=== PATIENT | male | born 1955 | race Caucasian/White ===

== ENCOUNTER 2019-02-10 08:33 | Day surgery (SDC) | payer BC ==
[~2019-02-10] VITALS: Ht 177.8 cm; Wt 70.8 kg
[2019-02-10] VITALS (9 sets, daily range): BP systolic 82–113; BP diastolic 55–73
[2019-02-10] MEDS ORDERED: normal saline 1000ml 1,000 ML IV PRN (08:55)
[2019-02-10 09:33] LABS: BASOPHILS # (AUTO) 0.1 X10'3 (0-0.2); BASOPHILS % (AUTO) 0.8 % (0-1); EOSINOPHILS # (AUTO) 0.1 X10'3 (0-0.9); EOSINOPHILS % (AUTO) 1.4 % (0-6); HEMATOCRIT 46.4 % (42.0-52.0); HEMOGLOBIN 15.6 g/dl (14.0-17.9); LYMPHOCYTES # (AUTO) 1.4 X10'3 (1.1-4.8); LYMPHOCYTES % (AUTO) 18.7 % (21-51); MEAN CORPUSCULAR HEMOGLOBIN 33.8 PG (27.0-31.0); MEAN CORPUSCULAR HGB CONC 33.7 g/dL (33.0-36.5); MEAN CORPUSCULAR VOLUME 100.2 FL (78-98); MEAN PLATELET VOLUME 7.9 FL (7.4-10.4); MONOCYTES # (AUTO) 0.9 X10'3 (0-0.9); MONOCYTES % (AUTO) 12.4 % (2-12); NEUTROPHILS # (AUTO) 4.9 X10'3 (1.8-7.7); NEUTROPHILS % (AUTO) 66.7 % (42-75); PLATELET COUNT 98 X10'3 (140-440); RED BLOOD COUNT 4.63 X10'6 (4.70-6.10); RED CELL DISTRIBUTION WIDTH 14.7 % (11.5-14.5); WHITE BLOOD COUNT 7.4 X10'3 (4.5-11.0)
[2019-02-10 09:40] LABS: ALBUMIN 2.9 G/DL (3.4-5.0); ANION GAP 7 (8-16); BLOOD UREA NITROGEN 19 MG/DL (7-18); BUN/CREATININE RATIO 21.3 (5.4-32.0); CALCIUM 9.4 MG/DL (8.5-10.1); CHLORIDE 93 MMOL/L (99-107); CREATININE 0.89 MG/DL (0.60-1.10); GLUCOSE 106 MG/DL (70-104); POTASSIUM 4.6 MMOL/L (3.5-5.1); SODIUM 123 MMOL/L (135-145); TOTAL CARBON DIOXIDE 22.8 MMOL/L (24-32); eGFR 87 ML/MIN
[2019-02-10] MEDS ORDERED: RIFA550T PO (09:54)
[2019-02-10] MEDS ORDERED: FURO-150 PO (09:54)
[2019-02-10] MEDS ORDERED: SPIR50TA PO (09:54)
[2019-02-10] MEDS ORDERED: ATOR40TA71 PO (09:54)
[2019-02-10] MEDS ORDERED: LORA10TA61 PO (09:54)
[2019-02-10] MEDS ORDERED: ZINC50TA60 PO (09:54)
[2019-02-10] MEDS ORDERED: LIDOcaine 1% (10mg/ml) 2ml vial SQ ONE (09:55)
[2019-02-10] MEDS ORDERED: fentaNYL/PF 50MCG/1 ML 2ML syringe IV PRN (09:55)
[2019-02-10] MEDS ORDERED: midazolam 2 mg/2 ml injection IV PRN (09:55)
[2019-02-10] MEDS ORDERED: LIDOcaine 1%/PF 5ML 10 MG/ML VIAL ONE (10:20)
[2019-02-10] MEDS ORDERED: fentaNYL/PF 50MCG/1 ML 2ML syringe ONE (10:21)
[2019-02-10] MEDS ORDERED: midazolam 2 mg/2 ml injection ONE (10:21)
[2019-02-10] MEDS ORDERED: iohexol 300mg/ml 100ml inj. ONE (10:21)
[2019-02-10] MEDS ORDERED: heparin 1,000 UNITS/NS 500ml 500 ML ONE (10:21)
== END 2019-02-10 14:40 | disposition home or self-care (01) ==
LOC: SSTAY O 08:33
PROVIDERS: ATTEND Radiology Diagnostic Radiology
DX: K74.60 Unspecified cirrhosis of liver (principal); Z79.899 Other long term (current) drug therapy; Z88.0 Allergy status to penicillin
CPT/HCPCS: 36415; 37200; 75970; 76937; 80048; 85025; 85610; 99152; 99153; C1769; C1894; C2625; J1644; J2250; J3010; J7030; Q9967

== ENCOUNTER 2019-03-23 05:57 | Day surgery (SDC) | payer BC ==
[2019-03-23] VITALS (10 sets, daily range): BP systolic 120–147; BP diastolic 73–105
[~2019-03-23] VITALS: Ht 175.3 cm; Wt 81.4 kg
[~2019-03-23 05:57] MED LIST: ATOR40TA71 PO; FURO-150 PO; LORA10TA61 PO; RIFA550T PO; SPIR50TA PO; ZINC50TA60 PO
[2019-03-23] MEDS ORDERED: normal saline 1000ml 1,000 ML IV PRN (06:30)
[2019-03-23] MEDS ORDERED: prednisone PEG (06:37)
[2019-03-23] MEDS ORDERED: FURO40TA4 PO (06:37)
[2019-03-23] MEDS ORDERED: DOCU-148 PO (06:37)
[2019-03-23] MEDS ORDERED: OMEP20CA11 PO (06:37)
[2019-03-23] MEDS ORDERED: SPIR100T5 PO (06:37)
[2019-03-23] MEDS: albumin 25% 100mL bottle x 1 IV PRN ×2 (09:22→10:19)
[2019-03-23 10:07] LABS: LYMPHOCYTES,BODY FLUID 67 %; MONOCYTES,BODY FLUID 22 %; NEUTROPHILS,BODY FLUID 11 %
[2019-03-23 10:09] LABS: BF MESOTHELIAL CELLS FEW; BF RBC COUNT 500 /CU MM; BF WBC COUNT 28 /CU MM (0-1000); BFAPPEAR CLOUDY; BFCOLOR YELLOW; BFVOLUME 20 ML
[2019-03-23 10:43] LABS: ALBUMIN,BODY FLUID < 0.6 G/DL
== END 2019-03-23 10:55 | disposition home or self-care (01) ==
LOC: SSTAY O 05:57
PROVIDERS: ATTEND Radiology Vascular & Interventional Radiology
DX: R18.8 Other ascites (principal); J90 Pleural effusion, not elsewhere classified; Z98.890 Other specified postprocedural states; Z79.899 Other long term (current) drug therapy; Z88.0 Allergy status to penicillin
CPT/HCPCS: 49083; 76604; 82042; 87070; 89051; C1729; J7030; P9047

== ENCOUNTER 2019-04-05 07:19 | Day surgery (SDC) | payer BC ==
[2019-04-05] VITALS (8 sets, daily range): BP systolic 122–134; BP diastolic 78–98
[~2019-04-05] VITALS: Ht 177.8 cm; Wt 77.7 kg
[~2019-04-05 07:19] MED LIST changes: +DOCU-148 PO; -FURO-150 PO; +FURO40TA4 PO; +OMEP20CA11 PO; +SPIR100T5 PO; -SPIR50TA PO; +prednisone PEG
[2019-04-05] MEDS ORDERED: normal saline 1000ml 1,000 ML IV PRN (07:40)
[2019-04-05] MEDS ORDERED: albumin 25% 100mL bottle x 1 IV PRN (07:40)
[2019-04-05] MEDS ORDERED: SPIR100T PO (07:47)
[2019-04-05] MEDS ORDERED: FURO40TA4 PO (07:47)
[2019-04-05] MEDS ORDERED: LACT10SO57 PO (07:47)
[2019-04-05] MEDS ORDERED: PRED20TA PO (07:47)
== END 2019-04-05 10:15 | disposition home or self-care (01) ==
LOC: SSTAY O 07:19
PROVIDERS: ATTEND Radiology Diagnostic Radiology
DX: R18.8 Other ascites (principal); Z88.0 Allergy status to penicillin
CPT/HCPCS: 49083; C1729; J7030; P9047